=== PATIENT | male | born 1990 | race African-American/Black ===

== ENCOUNTER 2018-09-05 13:59 | Emergency (ER) | payer OTHER ==
[2018-09-05] MEDS ORDERED: Dexamethasone 10 MG/ML VIAL ONE (14:30)
== END 2018-09-05 14:38 | disposition home or self-care (01) ==
LOC: ERS 13:59
DX: J06.9 Acute upper respiratory infection, unspecified (principal)
CPT/HCPCS: 87081; 87430; 99283; J1100

== ENCOUNTER 2018-10-23 18:21 | Emergency (ER) | payer OTHER ==
[2018-10-23] MEDS ORDERED: Ketorolac Tromethamine 60 MG/2 ML VIAL ONE (18:45)
--- NOTE | 2018-10-23 19:09 | RAD ---
RIGHT SHOULDER THREE VIEWS: 10/23/18 HISTORY: Injury, object fell on right arm with right shoulder pain. Exam is very suboptimal technically probably related to very large body habitus. No evidence for acut e fracture or dislocation. IMPRESSION: Limited study because of body habitus and technical factors. No acute fracture or dislocation. POS: [facility]
== END 2018-10-23 19:34 | disposition home or self-care (01) ==
LOC: ERS 18:21
DX: S43.401A Unspecified sprain of right shoulder joint, initial encounter (principal); F17.210 Nicotine dependence, cigarettes, uncomplicated; X50.1XXA Overexertion from prolonged static or awkward postures, initial encounter
CPT/HCPCS: 96372; J1885

== ENCOUNTER 2018-11-02 12:33 | Emergency (ER) | payer OTHER | END 2018-11-02 15:14 | disposition left against medical advice (07) | LOC: ERS 12:33 | DX: Z53.21 Procedure and treatment not carried out due to patient leaving prior to being seen by health care provider (principal) ==